=== PATIENT | female | born 1950 | race Caucasian/White ===

== ENCOUNTER 2018-11-09 12:37 | Outpatient (CLI) | payer MEDICARE | END 2018-11-09 12:38 | disposition home or self-care (01) | LOC: RAD 12:37 | DX: Z12.31 Encounter for screening mammogram for malignant neoplasm of breast (principal) ==

== ENCOUNTER 2018-12-13 14:53 | Outpatient (CLI) | payer MEDICARE | END 2018-12-13 14:54 | disposition home or self-care (01) | LOC: CARDIO 14:53 ==